=== PATIENT | male | born 1995 | race Caucasian/White ===

== ENCOUNTER 2019-07-30 17:08 | Emergency (ER) | payer OTHER, SELFPAY ==
[2019-07-30 17:12] VITALS: BP 126/75; PULSE 93; RESP 16; TEMP 37.4; O2SAT 95; BMI 23.0
--- NOTE | 2019-07-30 17:16 | DI.RAD.S_ITS ---
PROCEDURE: XR CHEST 2V INDICATIONS: chest pain TECHNIQUE: 2 views of the chest were acquired. COMPARISON: None. FINDINGS: Surgical changes and devices: None. Lungs and pleura: A probable calcified nodule is seen overlying the right mid lung. No effusion or pneumothorax is evident. No focal consolidation is evident. Mediastinum: Mediastinal contours are normal. Heart size is normal. Bones and chest wall: No suspicious bony abnormalities. Soft tissues appear unremarkable. IMPRESSION: 1. No acute cardiopulmonary process of the chest. 2. Probable calcified pulmonary nodule. Dedicated CT would be helpful for better characterization, which may be performed in an outpatient basis. Dictated by: Yaron Arshad M.D. on 07/30/2019 at 16:45 Approved by: Yaron Arshad M.D. on 07/30/2019 at 16:50
--- NOTE | 2019-07-30 17:30 | ED_ITS ---
HPI - Chest Pain General Chief Complaint: Chest Pain Stated Complaint: Chest pain, anxiety Time Seen by Provider: 07/30/19 17:10 Source: patient and EMS Mode of arrival: EMS Limitations: no limitations History of Present Illness HPI narrative: 23M nonsmoker with noncontributory medical history presents with a chief complaint of a sudden onset sharp and stabbing pleuritic type chest pain in the center of his chest. Patient has worsening symptoms with deep breath and range of motion. He is not dizzy nor weak or lightheaded. Denies any cough productive of bloody sputum. He denies any recent long distance travel, history of clot or injury. He denies any cardiac or pulmonary history. He does have a history of anxiety and developed some numbness and tingling in his fingers after the onset of these symptoms. He is improving even prior to his arrival. Related Data Allergies Allergy/AdvReac Type Severity Reaction Status Date / Time No Known Drug Allergies Allergy Verified 07/30/19 17:12 Review of Systems Constitutional Constitutional: Denies chills, Denies fatigue, Denies fever(s), Denies frequent falls, Denies lethargy and Denies weakness Eyes Eyes: Denies change in vision, Denies eye discharge, Denies irritation and Denies loss of vision ENT Ears, Nose, Mouth, and Throat: Denies change in voice, Denies dizziness, Denies neck pain, Denies sore throat and Denies throat swelling Cardiovascular Cardiovascular: Reports chest pain, Denies irregular heart rhythm, Denies li ghtheadedness, Denies palpitations, Denies dyspnea, Denies dyspnea on exertion and Denies orthopnea Respiratory Respiratory: Denies dyspnea, Denies dyspnea on exertion and Denies wheezing Gastrointestinal Gastrointestinal: Denies abdominal pain, Denies change in bowel habits, Denies diarrhea, Denies nausea and Denies vomiting Genitourinary Genitourinary: Denies hematuria, Denies flank pain, Denies urinary incontinence and Denies urinary urgency Musculoskeletal Musculoskeletal: Denies back pain, Denies muscle weakness, Denies neck pain, Denies numbness and Denies tingling Integumentary/Breasts Skin/Breast: Denies pruritus, Denies erythema, Denies rash and Denies wounds Neurologic Neurologic: Denies behavioral changes, Denies confusion, Denies dizziness, Denies frequent falls, Denies loss of vision, Denies numbness, Denies tingling and Denies weakness Psychiatric Psychiatric: Denies anxiety, Denies behavioral changes, Denies confusion, Denies depression, Denies homicidal ideation and Denies suicidal ideation Endocrine Endocrine: Denies fatigue, Denies flushing and Denies palpitations Hematologic/Lymphatic Hematologic/Lymphatic: Denies easy bruising Allergic/Immunologic Allergic/Immunologic: Denies urticaria, Denies throat swelling and Denies wheezing Exam Narrative Exam Narrative: GENERAL: [23] year old patient appears stated age. Well- nourished, well-developed patient, in mild distress. HEAD: Atraumatic. Normocephalic. EYES: Pupils equal round and reactive. Extraocular motions intact. No scleral icterus. No injection or drainage. ENT: Nose without bleeding, purulent drainage. Throat without erythema, tonsillar hypertrophy or exudate. Airway patent. NECK: Trachea midline. Non tender CARDIOVASCULAR: Regular rate and rhythm without murmurs, gallops, or rubs. RESPIRATORY: Clear to auscultation. Breath sounds equal bilaterally. No wheezes, rales, or rhonchi. GASTROINTESTINAL: Abdomen soft, non-tender, nondistended. EXTREMITIES: No edema or joint tenderness. BACK: Nontender without deformity or crepitance. No flank tenderness. NEURO: AOx3. SKIN: No rash or erythema of visible areas Initial Vital Signs Initial Vital Signs: Vital Signs Temperature 99.4 F 07/30/19 17:12 Pulse Rate 93 H 07/30/19 17:12 Respiratory Rate 16 07/30/19 17:12 Blood Pressure 126/75 07/30/19 17:12 Pulse Oximetry 95 07/30/19 17:12 Course Orders Ordered: ED Orders 07/30/19 17:16 XR chest 2V Stat EKG-12 Lead Stat 07/30/19 17:18 Complete Blood Count AUTO DIFF Stat Comprehensive Metabolic Panel Stat D Dimer Stat Lipase Stat Troponin & CK Cardiac Panel Stat Discontinued Medications Ketorolac Tromethamine (Toradol) 15 mg IV NOW ONE Stop: 07/30/19 17:17 Vital Signs Vital signs: Vital Signs - 8 hr 07/30/19 17:12 07/30/19 18:51 Temperature 99.4 F Pulse Rate 93 H 83 Respiratory Rate 16 Blood Pressure 126/75 119/68 Pulse Oximetry 95 99 MDM - Chest Pain Lab Data Result diagrams: 07/30/19 17:18 07/30/19 17:18 Labs: Lab Results 07/30/19 07/30/19 07/30/19 Range/Units 17:18 17:18 17:18 WBC 8.1 (4.5-11.0) X10^3/uL RBC 5.67 (4.5-5.9) X10^6/uL Hgb 16.9 (13.5-17.5) g/dL Hct 48.7 (41-53) % MCV 85.9 (80-100) fL MCH 29.8 (26-34) PG MCHC 34.7 (30-36) % RDW 12.4 (11.6-14.8) % Plt Count 256 (150-400) X10^3/uL Neut % (Auto) 47.9 L (50-75) % Lymph % (Auto) 43.3 H (25-40) % [place] % (Auto) 6.7 (3-14) % Eos % (Auto) 1.4 L (2-4) % Baso % (Auto) 0.7 (0-2) % Neut # (Auto) 3900 (2019-4172) /uL Lymph # (Auto) 3500 (4841-7820) /uL [place] # (Auto) 500 (0-900) /uL Eos # (Auto) 100 (0-450) /uL Baso # (Auto) 100 (0-100) /uL D-Dimer < 200 (<230) ng/mL Sodium 142 (137-145) mmol/L Potassium 3.5 (3.4-5.1) mmol/L Chloride 100 (98-107) mmol/L Carbon Dioxide 27 (22-32) mmol/L BUN 18 (9-20) mg/dL Creatinine 1.20 (0.66-1.25) mg/dL Estimated GFR > 60.0 (>60) mL/min BUN/Creatinine Ratio 15.0 (6-22) Glucose 91 (70-100) mg/dL Calcium 10.0 (8.4-10.2) mg/dL Total Bilirubin 0.8 (0.2-1.3) mg/dL AST 27 (17-59) IU/L ALT 21 (<50) IU/L Alkaline Phosphatase 55 (38-126) U/L Total Creatine Kinase 158 (55-170) U/L CK-MB (CK-2) 1.15 (<2.37) ng/mL CK-MB (CK-2) Rel Index 0.7 L (1.5-5.0) % Troponin I < 0.012 (0.01-0.034) ng/mL Total Protein 8.8 H (6.3-8.2) g/dL Albumin 5.4 H (3.5-5.0) g/dL Globulin 3.4 (1.7-4.1) g/dL Albumin/Globulin Ratio 1.6 (1.0-2.8) Lipase 162 (23-300) U/L ECG Data Interpretation: EKG is normal sinus rhythm rate [88 ] and free of any signs of ischemia or ectopy. No ST segmental elevation or depression. No T wave inversions MDM Narrative Medical decision making narrative: Multiple etiologies for patient's symptoms considered including: [pleurisy vs. PE vs. cardiac ischemia vs. other] Patient's symptoms improved or duration of stay with above-stated therapies. Findings and discharge diagnosis discussed with patient/family followed by verbalization of understanding Return precautions discussed with patient/family whom verbalize understanding. Discharge Plan Departure Patient Disposition: Home Clinical Impression: Atypical chest pain Discharge Date/Time: 07/30/19 18:52 Instructions: DI for Atypical Chest Pain Activity Restrictions/Additional Instructions: *You have been diagnosed with [atypical chest pain and carpal pedal spasm] *What to do: *Take medications as directed *Follow up with your primary care provider in 2-3 days, call for an appointment. Let them know you were seen in the Emergency Department and that we ask that you be seen in follow up *Return to ER if you should have any new, worsening or concerning symptoms Referrals: [facility] [Outside] Stand Alone Forms: Work Release Note
[2019-07-30 17:33] LABS: Alanine Aminotransferase 21 IU/L (<50); Albumin 5.4 g/dL (3.5-5.0); Albumin Globulin Ratio 1.6 (1.0-2.8); Alkaline Phosphatase 55 U/L (38-126); Aspartate Aminotransferase 27 IU/L (17-59); Bilirubin Total 0.8 mg/dL (0.2-1.3); Blood Urea Nitrogen 18 mg/dL (9-20); Carbon Dioxide 27 mmol/L (22-32); Chloride 100 mmol/L (98-107); Creatine Kinase 158 U/L (55-170); D Dimer < 200 ng/mL (<230); Estimated Glomerular Filt Rate > 60.0 mL/min (>60); Globulin 3.4 g/dL (1.7-4.1); Glucose 91 mg/dL (70-100); HEMOLYSIS 18 (0-50); Lipase 162 U/L (23-300); Potassium 3.5 mmol/L (3.4-5.1); Sodium 142 mmol/L (137-145); Total Protein 8.8 g/dL (6.3-8.2)
[2019-07-30 17:34] LABS: Add Manual Diff / Slide Review NO; Basophils Absolute Auto 100 /uL (0-100); Basophils Percent Auto 0.7 % (0-2); Eosinophils Absolute Auto 100 /uL (0-450); Eosinophils Percent Auto 1.4 % (2-4); Hematocrit 48.7 % (41-53); Hemoglobin 16.9 g/dL (13.5-17.5); Lymphocytes Absolute Auto 3500 /uL (1100-4500); Lymphocytes Percent Auto 43.3 % (25-40); Mean Corpuscular HGB Conc 34.7 % (30-36); Mean Corpuscular Hemoglobin 29.8 PG (26-34); Mean Corpuscular Volume 85.9 fL (80-100); Monocytes Absolute Auto 500 /uL (0-900); Monocytes Percent Auto 6.7 % (3-14); Neutrophils Absolute Auto 3900 /uL (1500-7000); Neutrophils Percent Auto 47.9 % (50-75); Platelet Count 256 X10^3/uL (150-400); Red Blood Cell Count 5.67 X10^6/uL (4.5-5.9); Red Cell Distribution Width 12.4 % (11.6-14.8); White Blood Cell Count 8.1 X10^3/uL (4.5-11.0)
[2019-07-30 17:44] LABS: Troponin I < 0.012 ng/mL (0.01-0.034)
[2019-07-30 17:48] LABS: CKMB % Relative Index 0.7 % (1.5-5.0); Creatine Kinase MB 1.15 ng/mL (<2.37)
[2019-07-30 18:51] VITALS: BP 119/68; PULSE 83; O2SAT 99
== END 2019-07-30 18:52 | disposition home or self-care (01) ==
PROVIDERS: Emergency Provider Emergency Medicine
DX: R07.89 Other chest pain (principal); F41.9 Anxiety disorder, unspecified
CPT/HCPCS: 71046; 80053; 82550; 82553; 83690; 84484; 85025; 85379; 93005; 99281; 99285

== ENCOUNTER → 2022-12-21 14:44 | Outpatient (CLI) | payer OTHER, SELFPAY ==
[2022-12-21 14:58] LABS: Hematocrit 47.2 % (41-53); Hemoglobin 16.5 g/dL (13.5-17.5); Mean Corpuscular HGB Conc 35.1 % (30-36); Mean Corpuscular Hemoglobin 29.8 PG (26-34); Mean Corpuscular Volume 84.8 fL (80-100); Platelet Count 200 X10^3/uL (150-400); Red Blood Cell Count 5.56 X10^6/uL (4.5-5.9); Red Cell Distribution Width 12.1 % (11.6-14.8); White Blood Cell Count 5.9 X10^3/uL (4.5-11.0)
[2022-12-21 15:13] LABS: Alanine Aminotransferase 25 IU/L (<50); Albumin 4.8 g/dL (3.5-5.0); Albumin Globulin Ratio 1.5 (1.0-2.8); Alkaline Phosphatase 53 U/L (38-126); Aspartate Aminotransferase 23 IU/L (17-59); BUN Creatinine Ratio 14.1 (6-22); Bilirubin Total 1.3 mg/dL (0.2-1.3); Blood Urea Nitrogen 11 mg/dL (9-20); Calcium 9.3 mg/dL (8.4-10.2); Carbon Dioxide 31 mmol/L (22-32); Chloride 100 mmol/L (98-107); Estimated Glomerular Filt Rate > 60 mL/min (>60); Globulin 3.2 g/dL (1.7-4.1); Glucose 87 mg/dL (70-100); HEMOLYSIS < 15 (0-50); Lipase 138 U/L (23-300); Potassium 4.6 mmol/L (3.4-5.1); Sodium 138 mmol/L (137-145)
== END ==
PROVIDERS: Visit Provider Physician Assistant
DX: R13.10 Dysphagia, unspecified (principal)
CPT/HCPCS: 36415; 80053; 83690; 85027

== ENCOUNTER 2024-11-25 13:02 | Emergency (ER) | payer OTHER, SELFPAY ==
[2024-11-25 13:07] VITALS: BP 123/68; PULSE 85; RESP 16; TEMP 36.9; O2SAT 99; BMI 24.0
--- NOTE | 2024-11-25 13:18 | DI.RAD.S_ITS ---
PROCEDURE: XR CHEST 1V INDICATIONS: Chest Pain TECHNIQUE: One view of the chest was acquired. COMPARISON: [facility], CR, XR CHEST 2V, 07/30/2019, 17:22. FINDINGS: Surgical changes and devices: None. Lungs and pleura: Circumscribed hyperdense lesion projecting over the right mid lung field appears stable compared to the exam from 07/30/2019 and is likely a calcified granuloma. No pleural effusions or pneumothorax. Mediastinum: Mediastinal contours appear normal. Heart size is normal. Bones and chest wall: No suspicious bony lesions. Overlying soft tissues appear unremarkable. IMPRESSION: No acute cardiopulmonary abnormality is seen. Stable calcified pulmonary nodule. Approved by: Woody Martinez M.D. on 11/25/2024 at 14:09
--- NOTE | 2024-11-25 13:18 | EKG_ITS ---
[address] [address] [address], [place] [address] Test Date: 2024-11-25 Pat Name: Clive Hughes Department: Room: Gender: Male Customer Service Sales Consultant: MORTEZA : 1995 Requested By: Order Number: [id number] Reading MD: Luciano Burgos MD Measurements Intervals [place] Rate: 78 P: 82 [place]: 168 QRS: 81 QRSD: 86 T: 62 QT: 326 QTc: 371 Interpretive Statements Normal sinus rhythm with sinus arrhythmia Electronically Signed On 11-26-2024 7:34:44 PDT by Luciano Burgos MD
[2024-11-25] MEDS: ASPIRIN 81 MG CHEW TAB 324 MG PO (13:33)
[2024-11-25 13:36] LABS: Add Manual Diff / Slide Review NO; Basophils Absolute Auto 0 /uL (0-100); Basophils Percent Auto 0.8 % (0-2); Eosinophils Absolute Auto 100 /uL (0-450); Hematocrit 45.3 % (41-53); Hemoglobin 15.5 g/dL (13.5-17.5); Lymphocytes Absolute Auto 2000 /uL (1100-4500); Lymphocytes Percent Auto 41.8 % (25-40); Mean Corpuscular HGB Conc 34.2 % (30-36); Mean Corpuscular Hemoglobin 29.5 PG (26-34); Mean Corpuscular Volume 86.2 fL (80-100); Monocytes Absolute Auto 300 /uL (0-900); Monocytes Percent Auto 5.7 % (3-14); Neutrophils Absolute Auto 2400 /uL (1500-7000); Neutrophils Percent Auto 49.7 % (50-75); Platelet Count 190 X10^3/uL (150-400); Red Blood Cell Count 5.26 X10^6/uL (4.5-5.9); Red Cell Distribution Width 12.5 % (11.6-14.8); White Blood Cell Count 4.9 X10^3/uL (4.5-11.0)
[2024-11-25 13:44] LABS: Prothrombin Time 11.4 SECONDS (9.4-12.5)
[2024-11-25 13:46] LABS: PTT Partial Thromboplastin Tim 34 SECONDS (25.1-36.5)
[2024-11-25 13:49] LABS: Alanine Aminotransferase 27 IU/L (<50); Albumin 4.8 g/dL (3.5-5.0); Alkaline Phosphatase 44 U/L (38-126); Aspartate Aminotransferase 27 IU/L (17-59); BUN Creatinine Ratio 13.6 (6-22); Bilirubin Total 0.8 mg/dL (0.2-1.3); Blood Urea Nitrogen 12 mg/dL (9-20); Calcium 9.1 mg/dL (8.4-10.2); Carbon Dioxide 28 mmol/L (22-32); Chloride 102 mmol/L (98-107); Creatine Kinase 185 U/L (55-170); Estimated Glomerular Filt Rate > 60 mL/min (>60); Globulin 2.4 g/dL (1.7-4.1); Glucose 93 mg/dL (70-99); HEMOLYSIS < 15 (0-50); Lipase 149 U/L (23-300); Potassium 4.1 mmol/L (3.4-5.1); Sodium 138 mmol/L (137-145); Total Protein 7.2 g/dL (6.3-8.2)
[2024-11-25 14:00] LABS: NT-proBNP (BNP-Adult 18+) < 20 pg/mL (<125); Troponin I < 0.012 ng/mL (0.01-0.034)
--- NOTE | 2024-11-25 15:34 | ED_ITS ---
<Statement entered by Luciano Ocasio, DO - 11/25/24 19:33> Dr. Amarjit amezcua statement: I was available for consultation during this patient's emergency department visit. This chart is signed by myself for administrative purposes only. I do not have direct contact with this patient during the visit. They were seen by the APC independently. HPI - Chest Pain General Chief Complaint: Chest Pain Stated Complaint: chest pain left side soreness sent by walk in Time Seen by Provider: 11/25/24 15:29 Source: patient and other Mode of arrival: Wheelchair History of Present Illness HPI narrative: Clive Hughes is a pleasant 29-year-old male, nonsmoker, with a past medical history of migraine headaches who presents to the emergency department for left- sided chest pain x1 day. 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 Reports experiencing chest pain many years ago but never since then. The pain has been constant. There is no pain with taking a deep breath, no shortness of breath, fevers, chills, cough, lower leg swelling, calf tenderness, history of VTE, hormone use, hemoptysis, abdominal pain, nausea, vomiting, diarrhea, diaphoresis. He does not smoke, drink or do drugs. Related Data Previous Rx's ?Medication ?Instructions ?Recorded omeprazole 40 mg capsule,delayed 40 mg PO DAILY #30 ca ps 12/21/22 release Allergies Allergy/AdvReac Type Severity Reaction Status Date / Time No Known Drug Allergies Allergy Verified 11/25/24 13:11 Review of Systems Review of Systems ROS Unobtainable: All systems reviewed & are unremarkable except as noted in HPI and below Patient History Social History Smoking Status: Never smoker Smoking Status: Never smoker Exam Narrative Exam Narrative: GENERAL: 29 year old patient appears stated age. Well-developed patient, in no acute distress. HEAD: Atraumatic. Normocephalic. NECK: Trachea midline. Cervical ROM intact. CARDIOVASCULAR: Regular rate and rhythm. RESPIRATORY: ?Nonlabored respirations. ?Speaking in clear, full sentences. ?Clear to auscultation. Breath sounds equal bilaterally. No wheezes, rales, or rhonchi. ? GASTROINTESTINAL: Abdomen soft, non-tender, nondistended. Normal BS. EXTREMITIES: No edema or joint tenderness. No calf tenderness. BACK: Nontender without deformity or crepitance. No flank tenderness. NEURO: AOx3. ?Clear speech. ?Moves all 4 extremities appropriately. SKIN: No rash or erythema of visible areas Initial Vital Signs Initial Vital Signs: Vital Signs Temperature 98.4 F 11/25/24 13:07 Pulse Rate 85 11/25/24 13:07 Respiratory Rate 16 11/25/24 13:07 Blood Pressure 123/68 11/25/24 13:07 Pulse Oximetry 99 11/25/24 13:07 Oxygen Delivery Method Room Air 11/25/24 13:07 Scores HEART Score Heart Score history: Slightly Suspicious Heart Score EKG: Normal Heart Score Age: < 45 years old Heart Score risk factors: No known risk factors Heart Score troponin: < or = to normal limit Heart Score Total: 0 PERC Score Age greater than or equal to 50 years: No Heart rate greater than or equal to 100 bpm: No Room Air O2 Sat less than 95%: No Unilateral leg swelling: No Recent trauma or surgery: No Hemoptysis: No Prior PE or DVT: No Hormone Use: No Total PERC Score: 0 Course Orders Ordered: ED Orders 11/25/24 13:18 XR chest 1V Stat Comprehensive Metabolic Panel Stat Lipase Stat Magnesium Stat NT-proBNP (BNP-Adult 18+) Stat Troponin & CK Cardiac Panel Stat EKG-12 Lead Stat 11/25/24 13:28 Complete Blood Count AUTO DIFF Stat PTT Partial Thromboplastin Jared Stat Prothrombin Time INR Stat 11/25/24 15:31 Trop I [Troponin I] Stat Discontinued Medications Aspirin (Aspirin 81 Mg Chew Tab) 324 mg PO NOW ONE Stop: 11/25/24 13:19 Last Admin: 11/25/24 13:33 Dose: 324 mg Documented By: SB Vital Signs Vital signs: Vital Signs - 8 hr 11/25/24 13:07 11/25/24 16:53 Temperature 98.4 F Pulse Rate 85 80 Respiratory Rate 16 16 Blood Pressure 123/68 119/67 Pulse Oximetry 99 100 Oxygen Delivery Method Room Air Room Air MDM - Chest Pain Medical Records Data Attestation: I reviewed the patient's medical records. Lab Data 11/25/24 13:28 11/25/24 13:18 Labs: Lab Results 11/25/24 11/25/24 11/25/24 Range/Units 13:18 13:28 15:31 WBC 4.9 (4.5-11.0) X10^3/uL RBC 5.26 (4.5-5.9) X10^6/uL Hgb 15.5 (13.5-17.5) g/dL Hct 45.3 (41-53) % MCV 86.2 (80-100) fL MCH 29.5 (26-34) PG MCHC 34.2 (30-36) % RDW 12.5 (11.6-14.8) % Plt Count 190 (150-400) X10^3/uL Neut % (Auto) 49.7 L (50-75) % Lymph % (Auto) 41.8 H (25-40) % [place] % (Auto) 5.7 (3-14) % Eos % (Auto) 2.0 (2-4) % Baso % (Auto) 0.8 (0-2) % Neut # (Auto) 2400 (9853-6198) /uL Lymph # (Auto) 2000 (7988-2859) /uL [place] # (Auto) 300 (0-900) /uL Eos # (Auto) 100 (0-450) /uL Baso # (Auto) 0 (0-100) /uL PT 11.4 (9.4-12.5) SECONDS INR 1.0 (0.9-1.3) APTT 34 (25.1-36.5) SECONDS Sodium 138 (137-145) mmol/L Potassium 4.1 (3.4-5.1) mmol/L Chloride 102 (98-107) mmol/L Carbon Dioxide 28 (22-32) mmol/L BUN 12 (9-20) mg/dL Creatinine 0.88 (0.66-1.25) mg/dL Estimated GFR > 60 (>60) mL/min BUN/Creatinine Ratio 13.6 (6-22) Glucose 93 (70-99) mg/dL Calcium 9.1 (8.4-10.2) mg/dL Magnesium 2.0 (1.6-2.3) mg/dL Total Bilirubin 0.8 (0.2-1.3) mg/dL AST 27 (17-59) IU/L ALT 27 (<50) IU/L Alkaline Phosphatase 44 (38-126) U/L Total Creatine Kinase 185 H (55-170) U/L Troponin I < 0.012 < 0.012 (0.01-0.034) ng/mL NT-Pro-B Natriuret Pep < 20 (<125) pg/mL Total Protein 7.2 (6.3-8.2) g/dL Albumin 4.8 (3.5-5.0) g/dL Globulin 2.4 (1.7-4.1) g/dL Albumin/Globulin Ratio 2.0 (1.0-2.8) Lipase 149 (23-300) U/L Imaging Data Chest x-ray: Radiologist's Impression: PROCEDURE: XR CHEST 1V INDICATIONS: Chest Pain TECHNIQUE: One view of the chest was acquired. COMPARISON: [facility], , XR CHEST 2V, 07/30/2019, 17:22. FINDINGS: Surgical changes and devices: None. Lungs and pleura: Circumscribed hyperdense lesion projecting over the right mid lung field appears stable compared to the exam from 07/30/2019 and is likely a calcified granuloma. No pleural effusions or pneumothorax. Mediastinum: Mediastinal contours appear normal. Heart size is normal. Bones and chest wall: No suspicious bony lesions. Overlying soft tissues appear unremarkable. IMPRESSION: No acute cardiopulmonary abnormality is seen. Stable calcified pulmonary nodule. Approved by: Woody Martinez M.D. on 11/25/2024 at 14:09 MDM Narrative Medical decision making narrative: 29-year-old male, nonsmoker, with a past medical history of migraine headaches who presents to the emergency department for left-sided chest pain x1 day. Differential diagnosis includes but is not limited to muscle spasm, costochondritis, precordial catch syndrome, ACS/SC, etc. Cardiac order set initiated in triage. Heart score 0, PERC 0. On exam patient is in no acute distress, resting comfortably, all vital signs within normal limits. Lungs are clear to auscultation. Chest x-ray reveals no acute cardiopulmonary abnormality, patient does have a stable calcified pulmonary nodule in the right side, I provided him a copy of his x-ray report. Labs reveal normal WBC count 4.9, hemoglobin 15.5, hematocrit 45.3. Normal electrolytes sodium 138, potassium 4.1. Normal renal function BUN 12 creatinine 0.88. Initial troponin negative, 2nd troponin pending. ECG reveals regular rhythm, rate of 78, QTC of 371 At this time we will treat patient with Toradol. Vital signs all remained within normal limits. Repeat troponin negative. Patient feels comfortable going home and is feeling better, discussed prompt PCP follow up and strict ED return precautions. Patient verbalized understanding of all information and is agreeable to the plan, he is stable for discharge home. Discharge Plan Departure Patient Disposition: Home Clinical Impression: Incidental pulmonary nodule Chest pain Qualifiers: Chest pain type: unspecified Qualified Code(s): R07.9 - Chest pain, unspecified Instructions: DI for Chest Pain Activity Restrictions/Additional Instructions: Dear Mr. Hughes, Today, we completed a work up for chest pain. Sometimes, we do not always find the cause for your symptoms in one ER visit. The findings on your exam today and on your blood work and imaging is reassuring. At this time, it is not 100% certain what is causing your symptoms, but we feel you can be discharged from the emergency department. It is possible this may worsen or you may get better. Please, if you get worse or your symptoms change, return to the emergency department. Otherwise, please follow up with your primary care doctor. Please follow up with your primary care doctor within the next 2-3 days for ER follow-up. (If you do not have a PCP you can call [phone]. ?to schedule an appointment with an [facility] Primary Care Provider) IF YOU DEVELOP ANY NEW OR WORSENING SYMPTOMS, RETURN TO THE ER! Please read the attached instructions, they highlight more specific treatments and interventions for you at home. Thank you for letting me participate in your care, Mary Porter PA-C Prescriptions: No Action omeprazole 40 mg capsule,delayed release(DR/EC) 40 mg PO DAILY Qty: 30 0RF Referrals: Miscellaneous,Doctor, MD [Primary Care Provider, Medical] Stand Alone Forms: Patient Portal/API, Work Release Note
[2024-11-25 16:02] LABS: Troponin I < 0.012 ng/mL (0.01-0.034)
[2024-11-25 16:53] VITALS: BP 119/67; PULSE 80; RESP 16; O2SAT 100
== END 2024-11-25 16:53 | disposition home or self-care (01) ==
PROVIDERS: Family Medicine; Emergency Provider Physician Assistant
DX: R07.9 Chest pain, unspecified (principal); R91.1 Solitary pulmonary nodule
CPT/HCPCS: 36415; 71045; 80053; 82550; 83690; 83735; 83880; 84484; 85025; 85610; 85730; 93005; 93010; 99283; 99284